=== PATIENT | female | born 1995 | race American Indian/Alaskan Native ===

== ENCOUNTER 2017-03-14 18:16 | Emergency (ER) | payer SELFPAY ==
[2017-03-14 19:08] LABS: Basophils % (Auto) 0.1 % (0.0-1.8); Eosinophils % (Auto) 2.4 % (0.0-4.3); Hematocrit 39.1 % (30.3-42.9); Hemoglobin 12.6 gm/dl (10.1-14.3); Mean Corpuscular HGB Conc 32 % (30-34); Mean Corpuscular Hemoglobin 27 pg (28-32); Mean Corpuscular Volume 84 fl (79-97); Red Blood Count 4.65 M/mm3 (3.65-5.03); Red Cell Distribution Width 14.1 % (13.2-15.2); White Blood Count 12.1 K/mm3 (4.5-11.0)
[2017-03-14] MEDS ORDERED: NACL 0.9% 1000 ML 1,000 ML IV ONE (19:11)
[2017-03-14 19:12] LABS: Anion Gap 22 mmol/L; BUN/Creatinine Ratio 11; Blood Urea Nitrogen 9 mg/dL (7-17); Calcium 8.8 mg/dL (8.4-10.2); Carbon Dioxide 21 mmol/L (22-30); Chloride 103.9 mmol/L (98-107); Glucose 132 mg/dL (65-100); Potassium 3.3 mmol/L (3.6-5.0); Sodium 144 mmol/L (137-145)
[2017-03-14] MEDS ORDERED: K-DUR PO ONE (19:19)
--- NOTE | 2017-03-14 19:21 | Emergency Department Report ---
HPI - General Chief Complaint: Chest Pain Time Seen by Provider: 03/14/17 18:54 - HPI HPI: This is a 21 year-old female presents to the emergency department with the complaint of probable intoxication and some chest pain, palpitations, nausea and vomiting after eating what appears to be a laced Brownie a few hours ago. 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 About an hour after eating the brownie patient started having the symptoms. When I approach her for history and physical patient says "I am high. " She denies knowing that there was any type of illicit drug within the brownies. She denies any past medical history other than asthma. She did not take anything for her symptoms prior to presentation. ED Past Medical Hx - Past Medical History Hx Sickle Cell Disease: No Hx Asthma: Yes Hx HIV: No Additional medical history: PID - Social History Smoking Status: Never Smoker Substance Use Type: None - Medications Home Medications: Home Medications Medication Instructions Recorded Confirmed Last Taken Type No Known Home Medications [No 03/14/17 03/14/17 Unknown History Reported Home Medications] ED Review of Systems ROS: Stated complaint: (INGESTION OF SUBSTANCE) Other details as noted in HPI Comment: All other systems reviewed and negative Constitutional: denies: chills, fever Eyes: denies: eye pain, eye discharge, vision change ENT: denies: ear pain, throat pain Respiratory: denies: cough, shortness of breath, wheezing Cardiovascular: chest pain, palpitations Gastrointestinal: nausea, vomiting. denies: abdominal pain Genitourinary: denies: urgency, dysuria, discharge Musculoskeletal: denies: back pain, joint swelling, arthralgia Skin: denies: rash, lesions Neurological: denies: headache, weakness, paresthesias Physical Exam - Physical Exam Vital Signs: Vital Signs 03/14/17 18:21 Temperature 97.7 F Pulse Rate 147 H Respiratory 16 Rate Blood Pressure 144/76 O2 Sat by Pulse 96 Oximetry Physical Exam: GENERAL: The patient is well-developed well-nourished. HENT: Normocephalic. Atraumatic. Patient has moist mucous membranes. EYES: Extraocular motions are intact. Pupils equal reactive to light bilaterally. NECK: Supple. Trachea is midline. CHEST/LUNGS: Clear to auscultation. There is no respiratory distress noted. HEART/CARDIOVASCULAR: Regular. There is no tachycardia. There is no murmur. ABDOMEN: Abdomen is soft, nontender. Patient has normal bowel sounds. There is no abdominal distention. SKIN: Skin is warm and dry. NEURO: Patient is awake and alert but appears intoxicated. She is cooperative and can follow commands. She has normal speech. Cranial nerves II through XII grossly intact. MUSCULOSKELETAL: There is no tenderness or deformity. There is no limitation range of motion. There is no evidence of acute injury. ED Course Vital Signs 03/14/17 18:21 Temperature 97.7 F Pulse Rate 147 H Respiratory 16 Rate Blood Pressure 144/76 O2 Sat by Pulse 96 Oximetry ED Medical Decision Making - Lab Data Result diagrams: 03/14/17 18:34 03/14/17 18:34 - EKG Data -: EKG Interpreted by Me EKG shows normal: sinus rhythm, axis, intervals, QRS complexes, ST-T waves Rate: tachycardia (127 bpm) - EKG Data When compared to previous EKG there are: no significant change (other than for current tachycardia) Interpretation: normal EKG (with tachycardia of 127 bpm) - Radiology Data Radiology results: image reviewed interpreted by me: Chest x-ray does not show any acute process. There are no pleural effusions, obvious pneumonia and there is no pneumothorax. - Medical Decision Making Patient appears intoxicated after eating some brownies that appear been laced with something. Urine drug screen positive for marijuana. Negative blood alcohol level. Rest of labs are mostly unremarkable except for some mild hypokalemia that was replaced with potassium chloride. She presented with a moderate amount of tachycardia that resolved with some IV fluid and rest. She does not have any focal, motor or sensory deficits in her cranial nerves are intact. She was reevaluated multiple times of her multiple hours and is feeling improved. There is no longer any nausea or vomiting, any chest discomfort. EKG does not show any signs of ST elevation HI, ischemia or dysrhythmia. Chest x-ray does not show any acute process. She's been encouraged to follow up with her primary care physician and return to the ER with any worsening or symptoms or any acute distress. Family is bedside to take responsibility for her and get her home. Critical Care Time: No Critical care attestation.: If time is entered above; I have spent that time in minutes in the direct care of this critically ill patient, excluding procedure time. ED Disposition Clinical Impression: Cannabis overdose Qualifiers: Encounter type: initial encounter Injury intent: accidental or unintentional Qualified Code(s): T40.7X1A - Poisoning by cannabis (derivatives), accidental ( unintentional), initial encounter Intoxication by drug Qualifiers: Complication of substance-induced condition: uncomplicated Qualified Code(s): F19.920 - Other psychoactive substance use, unspecified with intoxication, uncomplicated Disposition: DC-01 TO HOME OR SELFCARE Is pt being admited?: No Condition: Stable Instructions: Cannabis Abuse (ED) Additional Instructions: Please stay away from any further illicit drug use. Follow-up with your primary care physician. Return to the emergency Department with any worsening of her symptoms or any acute distress. Referrals: PRIMARY [facility] [Referring] - 3-5 Days KT MCKINLEY JR, MD [Staff Physician] - 3-5 Days [facility] [Outside] - 3-5 Days Time of Disposition: 21:57
[2017-03-14 19:38] LABS: Platelet Count 388 K/mm3 (140-440)
[2017-03-14 20:09] LABS: Urine Drugs of Abuse Note Disclamer
[2017-03-14 21:20] LABS: Bilirubin,Urine NEG (Negative); Blood,Urine NEG (Negative); Ketones,Urine NEG (Negative); Leukocyte Esterase,Urine NEG (Negative); Mucus,Urine 2+ /HPF; Nitrite,Urine NEG (Negative)
[2017-03-14 21:56] VITALS: BP 103/69
--- NOTE | 2017-03-14 22:12 | XRay Report ---
FINAL REPORT EXAM: XR CHEST 1V AP HISTORY: CP TECHNIQUE: Frontal chest x-ray performed portably and upright Comparison: None FINDINGS: Normal heart size. Mildly elevated left hemidiaphragm without basal atelectasis. Clear well expanded lungs. Imaged axial skeleton is unremarkable. IMPRESSION: Mildly elevated left hemidiaphragm. Clear well expanded lungs without evidence for acute cardiopulmonary disease.
== END 2017-03-14 22:05 | disposition home or self-care (01) ==
LOC: ED 18:16
DX: T40.7X1A Poisoning by cannabis (derivatives), accidental (unintentional), initial encounter (principal); F19.920 Other psychoactive substance use, unspecified with intoxication, uncomplicated; J45.909 Unspecified asthma, uncomplicated; Y92.9 Unspecified place or not applicable
CPT/HCPCS: 36415; 71010; 80048; 80307; 81001; 84443; 84484; 84703; 85025; 93005; 93010; 96360; 99284; G0480; J7030; 80320